=== PATIENT | male | born 1995 | race African-American/Black ===

== ENCOUNTER 2021-11-24 05:45 | Emergency (ER) | payer OTHER ==
[2021-11-24 05:55] VITALS: BP 127/88; PULSE 64; RESP 22; TEMP 98
[2021-11-24] MEDS ORDERED: RABIES IMMUNE GLOB 300 UNIT/ML 1 ML VIAL IM ONE (06:12)
[2021-11-24] MEDS ORDERED: RABIES VACCINE (PCEC) 2.5 UNIT KIT IM ONE (06:15)
--- NOTE | 2021-11-24 06:54 | ED ---
Animal Bite HPI - General Chief Complaint: Animal Bite Stated Complaint: Bitten by Bat Time Seen by Provider: 11/24/21 05:55 Source: patient, RN notes reviewed Mode of arrival: ambulatory Limitations: no limitations - History of Present Illness Initial Comments: 26-year-old male presents emergency Department with chief complaint of bat bite. Patient states he was bit by a bat in his left arm 90s ago. Patient states his tetanus is up-to-date. Patient states he is advised to continue rabies accident. Patient offers no complaints. - Related Data Allergies Allergy/AdvReac Type Severity Reaction Status Date / Time No Known Allergies Allergy Verified 11/24/21 05:55 Review of Systems ROS Statement: Those systems with pertinent positive or pertinent negative responses have been documented in the HPI. ROS Other: All systems not noted in ROS Statement are negative. Past Medical History Past Medical History: No Reported History History of Any Multi-Drug Resistant Organisms: None Reported Past Surgical History: No Surgical Hx Reported Past Psychological History: No Psychological Hx Reported Smoking Status: Never smoker Past Alcohol Use History: None Reported Past Drug Use History: None Reported General Exam Limitations: no limitations General appearance: alert, in no apparent distress Head exam: Present: atraumatic, normocephalic, normal inspection Neck exam: Present: normal inspection. Absent: tenderness, meningismus, lymphadenopathy Respiratory exam: Present: normal lung sounds bilaterally. Absent: respiratory distress, wheezes, rales, rhonchi, stridor Cardiovascular Exam: Present: regular rate, normal rhythm, normal heart sounds. Absent: systolic murmur, diastolic murmur, rubs, gallop, clicks Course Vital Signs 11/24/21 05:50 Temperature 98 F Pulse Rate 64 Respiratory 22 Rate Blood Pressure 127/88 O2 Sat by Pulse 97 Oximetry Medical Decision Making - Medical Decision Making Patient had rabies vaccine and immunoglobulin given, additional prescription for rabies vaccine on day 05/20/2013 were given. Disposition Clinical Impression: Bat bite wound Disposition: HOME SELF-CARE Condition: Stable Instructions (If sedation given, give patient instructions): Animal Bite (ED) Additional Instructions: Please return to the Emergency Department if symptoms worsen or any other concerns. Is patient prescribed a controlled substance at d/c from ED?: No Referrals: None,Stated [Primary Care Provider] - 1-2 days Time of Disposition: 06:53
[2021-11-27] MEDS ORDERED: RABIES VACCINE (PCEC) 2.5 UNIT KIT IM ONE (04:30)
[2021-12-01] MEDS ORDERED: RABIES VACCINE (PCEC) 2.5 UNIT KIT IM ONE (04:30)
[2021-12-09] MEDS ORDERED: RABIES VACCINE (PCEC) 2.5 UNIT KIT IM ONE (03:00)
== END 2021-11-24 07:11 | disposition home or self-care (01) ==
LOC: EC 05:45
DX: S41.152A Open bite of left upper arm, initial encounter (principal); Z23 Encounter for immunization; W64.XXXA Exposure to other animate mechanical forces, initial encounter
CPT/HCPCS: 90375; 90471; 90472; 90675; 96372; 99282